=== PATIENT | male | born 1990 | race Native Hawaiian/Other Pacific Islander ===

== ENCOUNTER 2018-06-29 19:26 | Inpatient (IN) | payer BC, MEDICAID ==
[2018-06-29 19:26] VITALS: BMI 21.6
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
[2018-06-30 00:07] LABS: EOS # 0.2 K/uL (0.0-0.7); EOS % 2.2 % (0.0-4.0); HEMOGLOBIN 14.2 g/dL (12.0-18.0); LYMPH # 2.1 K/uL (1.0-4.3); LYMPH % 24.7 % (20.0-40.0); MEAN CELL VOLUME 93.3 fl (80.0-94.0); MEAN CORPUSCULAR HEMOGLOBIN 31.5 pg (27.0-31.0); MEAN CORPUSCULAR HGB CONC 33.8 g/dL (33.0-37.0); MEAN PLATELET VOLUME 10.8 fl (7.2-11.7); MONO # 1.1 K/uL (0.0-0.8); MONO % 12.9 % (0.0-10.0); NEUT # 5.1 K/uL (1.8-7.0); NEUT % 60.2 % (50.0-75.0); NRBC % 0.1 % (0.0-0.0); RBC 4.52 Mil/uL (4.40-5.90); RED CELL DISTRIBUTION WIDTH 12.1 % (11.5-14.5); WHITE BLOOD COUNT 8.5 K/uL (4.8-10.8)
[2018-06-30 00:22] LABS: ALB/GLOB RATIO 1.6 (1.0-2.1); ALBUMIN 4.4 g/dL (3.5-5.0); ALT/SGPT 29 U/L (21-72); AST/SGOT 33 U/L (17-59); BLOOD UREA NITROGEN 8 mg/dl (9-20); CALCIUM 9.5 mg/dL (8.4-10.2); GFR NON-AFRICAN AMERICAN > 60
[2018-06-30 00:47] LABS: BARBITURATES, UR NEGATIVE (NEGATIVE); BENZODIAZEPINES, UR NEGATIVE (NEGATIVE); OPIATES, UR NEGATIVE (NEGATIVE); PHENCYCLIDINE, UR NEGATIVE (NEGATIVE)
[2018-06-30 00:52] LABS: SQUAMOUS EPITHIAL < 1 /hpf (0-5); URINE BILIRUBIN NEGATIVE (NEGATIVE); URINE BLOOD NEGATIVE (NEGATIVE); URINE CLARITY SLIGHTY-CLOUDY (Clear); URINE COLOR YELLOW (YELLOW); URINE GLUCOSE (UA) NEG (NEGATIVE); URINE HYALINE CAST 0-2 /hpf (0-2); URINE LEUKOCYTE ESTERASE NEG Leu/uL (Negative); URINE PROTEIN 30 mg/dL (NEGATIVE); URINE UROBILINOGEN 0.2-1.0 mg/dL (0.2-1.0)
[2018-06-30] MEDS ORDERED: DiphenhydrAMINE 50 mg/ml Inj IM PRN (02:14)
[2018-06-30] MEDS ORDERED: Magnesium Hydroxide Susp 30 ml UD PO PRN (02:14)
[2018-06-30] MEDS ORDERED: Alum-Mag Hydrox-Simethicone Susp (30 mL) PO PRN (02:14)
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
[2018-06-30] MEDS ORDERED: Potassium Chloride 20 mEq ER Tab PO ONE (05:26)
--- NOTE | 2018-06-30 10:24 | CP.PCM.CON ---
History of Present Illness - History of Present Illness History of Present Illness: 27 yo male with history of schizophrenia admitted to psyche unit because of paranoia Review of Systems - Review of Systems All systems: reviewed and no additional remarkable complaints except (aside from those mentioned above, 12 point system review were negative by me) Past Patient History - Tetanus Immunizations Tetanus Immunization: Unknown - Past Social History Smoking Status: Never Smoked Chewing Tobacco Use: No Cigar Use: No Alcohol: None Drugs: Denies - CARDIAC Hx Hypertension: No - PULMONARY Hx Tuberculosis: No - NEUROLOGICAL Hx Seizures: No - HEENT Hx HEENT Problems: No - ENDOCRINE/METABOLIC Hx Endocrine Disorders: No - HEMATOLOGICAL/ONCOLOGICAL Hx Human Immunodeficiency Virus (HIV): No - INTEGUMENTARY Hx Dermatological Problems: No - MUSCULOSKELETAL/RHEUMATOLOGICAL Hx Falls: No - GASTROINTESTINAL Hx Gastrointestinal Disorders: No - GENITOURINARY/GYNECOLOGICAL Hx Sexually Transmitted Disorders: No - PSYCHIATRIC Hx Bipolar Disorder: Yes Hx Paranoia: Yes (COMPULSIVE) Hx Schizophrenia: Yes - SURGICAL HISTORY Hx Surgeries: No - ANESTHESIA Hx Anesthesia: No Hx Anesthesia Reactions: No Hx Malignant Hyperthermia: No Has any member of the family had a problem w/ anesthesia?: No Meds Allergies/Adverse Reactions: Allergies Allergy/AdvReac Type Severity Reaction Status Date / Time No Known Allergies Allergy Verified 06/29/18 22:36 - Medications Medications: Current Medications Acetaminophen (Tylenol 325mg Tab) 650 mg PO Q4 PRN PRN Reason: pain level 4-7 Last Admin: 06/30/18 02:35 Dose: 650 mg Al Hydrox/Mg Hydrox/Simethicone (Maalox Plus 30 Ml) 30 ml PO Q4 PRN PRN Reason: Dyspepsia Diphenhydramine HCl (Benadryl) 50 mg IM Q6 PRN PRN Reason: Extrapyramidal S/S Unable PO Diphenhydramine HCl (Benadryl) 50 mg PO Q6 PRN PRN Reason: Extrapyramidal Symptoms Diphenhydramine HCl (Benadryl) 50 mg PO HS PRN PRN Reason: Sleep Last Admin: 06/30/18 02:35 Dose: 50 mg Haloperidol (Haldol) 5 mg PO Q4 PRN PRN Reason: Agitation Haloperidol Lactate (Haldol) 5 mg IM Q4 PRN PRN Reason: Agitation, Unable to Take PO Lorazepam (Ativan) 2 mg IM Q8H PRN PRN Reason: Anxiety/Agitation,Unable PO Lorazepam (Ativan) 1 mg PO Q8H PRN PRN Reason: Anxiety/Agitation Magnesium Hydroxide (Milk Of Magnesia) 30 ml PO HS PRN PRN Reason: Constipation Physical Exam - Constitutional Appears: No Acute Distress - Head Exam Head Exam: ATRAUMATIC - Eye Exam Eye Exam: absent: Scleral icterus - ENT Exam ENT Exam: Mucous Membranes Moist - Neck Exam Neck exam: Negative for: Meningismus - Respiratory Exam Respiratory Exam: absent: Rales, Rhonchi, Wheezes, Respiratory Distress - Cardiovascular Exam Cardiovascular Exam: REGULAR RHYTHM, +S1, +S2 - GI/Abdominal Exam GI & Abdominal Exam: Soft. absent: Tenderness - Rectal Exam Rectal Exam: Deferred - Neurological Exam Neurological exam: Alert, Oriented x3 - Psychiatric Exam Psychiatric exam: Normal Affect - Skin Skin Exam: Dry, Intact Results - Vital Signs Recent Vital Signs: Last Vital Signs Temp 98.6 F 06/30/18 02:30 Pulse 85 06/30/18 02:51 Resp 18 06/30/18 02:31 BP 110/70 06/30/18 02:30 Pulse Ox 99 06/30/18 02:51 - Labs Result Diagrams: 06/29/18 23:36 06/29/18 23:36 Labs: Laboratory Results - last 24 hr 06/29/18 06/29/18 06/29/18 23:36 23:36 23:36 WBC 8.5 RBC 4.52 Hgb 14.2 Hct 42.1 MCV 93.3 D MCH 31.5 H MCHC 33.8 RDW 12.1 Plt Count 211 MPV 10.8 Neut % (Auto) 60.2 Lymph % (Auto) 24.7 [place] % (Auto) 12.9 H Eos % (Auto) 2.2 Baso % (Auto) 0.0 Neut # (Auto) 5.1 Lymph # (Auto) 2.1 [place] # (Auto) 1.1 H Eos # (Auto) 0.2 Baso # (Auto) 0.0 Sodium 137 Potassium 3.5 L Chloride 100 Carbon Dioxide 25 Anion Gap 16 BUN 8 L Creatinine 0.8 Est GFR ( Amer) > 60 Est GFR (Non-Af Amer) > 60 Random Glucose 107 Calcium 9.5 Total Bilirubin 0.6 AST 33 ALT 29 Alkaline Phosphatase 48 Total Protein 7.2 Albumin 4.4 Globulin 2.8 Albumin/Globulin Ratio 1.6 Urine Color Urine Clarity Urine pH Ur Specific Conrad Urine Protein Urine Glucose (UA) Urine Ketones Urine Blood Urine Nitrate Urine Bilirubin Urine Urobilinogen Ur Leukocyte Esterase Urine RBC (Auto) Urine Microscopic WBC Ur Squamous Epith Cells Hyaline Casts Salicylates < 1.0 Urine Opiates Screen Urine Methadone Screen Ur Barbiturates Screen Ur Phencyclidine Scrn Ur Amphetamines Screen U Benzodiazepines Scrn U Oth Cocaine Metabols U Cannabinoids Screen Alcohol, Quantitative < 10 06/30/18 06/30/18 00:20 00:20 WBC RBC Hgb Hct MCV MCH MCHC RDW Plt Count MPV Neut % (Auto) Lymph % (Auto) [place] % (Auto) Eos % (Auto) Baso % (Auto) Neut # (Auto) Lymph # (Auto) [place] # (Auto) Eos # (Auto) Baso # (Auto) Sodium Potassium Chloride Carbon Dioxide Anion Gap BUN Creatinine Est GFR ( Amer) Est GFR (Non-Af Amer) Random Glucose Calcium Total Bilirubin AST ALT Alkaline Phosphatase Total Protein Albumin Globulin Albumin/Globulin Ratio Urine Color Yellow Urine Clarity Slighty-cloudy Urine pH 6.0 Ur Specific Conrad 1.014 Urine Protein 30 Urine Glucose (UA) Neg Urine Ketones Negative Urine Blood Negative Urine Nitrate Negative Urine Bilirubin Negative Urine Urobilinogen 0.2-1.0 Ur Leukocyte Esterase Neg Urine RBC (Auto) 3 Urine Microscopic WBC 4 Ur Squamous Epith Cells < 1 Hyaline Casts 0-2 Salicylates Urine Opiates Screen Negative Urine Methadone Screen Negative Ur Barbiturates Screen Negative Ur Phencyclidine Scrn Negative Ur Amphetamines Screen Negative U Benzodiazepines Scrn Negative U Oth Cocaine Metabols Positive H U Cannabinoids Screen Positive H Alcohol, Quantitative Assessment & Plan (1) Schizophrenia, paranoid Status: Acute Comment: psyche is managing
--- NOTE | 2018-06-30 14:11 | RAD ---
Date of service: 06/29/2018 HISTORY: MEDICAL CLEARANCE COMPARISON: Comparison chest 03/05/2015 TECHNIQUE: Chest PA and lateral views FINDINGS: LUNGS: No active pulmonary disease. PLEURA: No significant pleural effusion identified. No pneumothorax apparent. CARDIOVASCULAR: No aortic atherosclerotic calcification present. Normal cardiac size. No pulmonary vascular congestion. OSSEOUS STRUCTURES: No significant abnormalities. VISUALIZED UPPER ABDOMEN: Normal. OTHER FINDINGS: None. IMPRESSION: No active disease.
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
--- NOTE | 2018-06-30 17:30 | CARD ---
APPROVED REPORT Date of service: 06/30/2018 EKG Measurement Heart [id number] <Conclusion> Normal sinus rhythm with sinus arrhythmia Early repolarization Normal ECG
--- NOTE | 2018-07-01 13:45 | PCM.PYCHPN ---
Psychiatric Progress Note - Psychiatric Progress Note Patient seen today, length of contact: chart reviewed case discussed with team pt seen Patient Chief Complaint: minimal verbalization when this manual writer attempted to engage pt.. staff report pt somewhat isolative at time, per staff pt reports sleep improved somewhat denies side effects medication, pt seen walking about unit, make eye contact intermittently, staff report pt's behavior bizzarre at times, continues to report that father has not been helping him staff report pt received prn medications last night 2nd anxiety/irritability Problems Identified/Issues Discussed: alteration in mood alteration in cognition alteration in coping Medical Problems: per chart Diagnostic Results: psychiatry per medicine per nursing per social media analyst DSM 5 Symptoms Update: paranoia Medication Change: Yes (increase seroquel to 100mg ) Medical Record Reviewed: Yes Consults ordered or reviewed: pt being followed by medical team Mental Status Examination - Cognitive Function Orientation: Person, Place Attention: Poor Concentration: Poor Association: Loose Fund of Knowledge: Poor Decription of patient's judgement and insights: impaired - Affect Affect: Constricted - Speech Speech: Soft - Formal Thought Process Formal Thought Process: Paranoia (congrete) - Homicidal Ideation Homicidal Ideation: No Goal/Treatment Plan - Goal/Treatment Plan Need for Continued Stay: Remain at risks for inpatient hospitalization, Discharge may exacerbated symptoms Progress Toward Problem(s) and Goals/Treatment Plan: inpt milieu vital signs and clinical assessment per clinical status and per protocol prns per unit protocol hospitalist consult increase seroquel 100mg po hs repeat cmp in am (previous potassium 3.5/received replacement x1 dose [id number] per medical team recheck urinalysis in am pt with +rbc/wbc/cloudy-will obtain rpr, gchlamydia am, obtain hiv 1/2 screen (rule sti) pt defers having knowledge at to why urine toxicology was positive for thc and cocaine discharge planning in progress Estimated Date of D/C: 07/09/18 - Smoking Cessation Smoking Cessation Initiated: No Reason for not providing: pt defers
[2018-07-01 20:38] VITALS: O2SAT 100
[2018-07-02] MEDS ORDERED: OLANZapine 5 mg Disintegrating Tab PO STA (11:43)
--- NOTE | 2018-07-02 14:19 | PCM.PYCHPN ---
Psychiatric Progress Note - Psychiatric Progress Note Patient seen today, length of contact: chart reviewed case discussed with team pt seen Patient Chief Complaint: It is all my father fault Problems Identified/Issues Discussed: pt evaluated with treatment team, presenting with disorganized speech and thought process, verbalizing paranoid delusions towards father, showing limited insight into illness and into the need for medications, pt reportedly developed EPS yesterday due to haldol, discussed starting low dose of zyprexa with cogentin and also starting depakote ,pt appears internally preoccupied, denid command hallucinations, denied suicidal or homicidal ideation DSM 5 Symptoms Update: schizoaffective disorder cannabis abuse cocaine abuse Medication Change: Yes (start zyprexa and depakote) Medical Record Reviewed: Yes Mental Status Examination - Cognitive Function Orientation: Person, Place Attention: Poor Concentration: Poor Association: Loose Fund of Knowledge: Poor - Affect Affect: Constricted - Speech Speech: Soft - Formal Thought Process Formal Thought Process: Paranoia (congrete) - Suicidal Ideation Suicidal Ideation: No - Homicidal Ideation Homicidal Ideation: No Goal/Treatment Plan - Goal/Treatment Plan Need for Continued Stay: Remain at risks for inpatient hospitalization, Discharge may exacerbated symptoms Progress Toward Problem(s) and Goals/Treatment Plan: start zyprexa zydis 5mg with cogentin 1mg depakote 1500mg monitor pt for psychopharmacological effects and side effects profile try to obtain collateral information/ message left for father Estimated Date of D/C: 07/09/18
[2018-07-02] MEDS: Divalproex 500 mg DR(BID formulation) PO SCH (21:06)
[2018-07-03] MEDS: Divalproex 500 mg DR(BID formulation) PO SCH ×2 (08:40→21:05)
--- NOTE | 2018-07-03 14:23 | PCM.PYCHPN ---
Psychiatric Progress Note - Psychiatric Progress Note Patient seen today, length of contact: chart reviewed case discussed with team pt seen Patient Chief Complaint: I do not want to talk to my father Problems Identified/Issues Discussed: pt evaluated continues to be guarded and evasive paranoid with delusions of persecution towards his fathe internally preoccupied, observed responding to internal stimuli, poor insight into illness , irritable mood and affect di scussed increasing zyprexa, no reported side effects pt denied command hallucinations denied suicidal or homicidal ideation DSM 5 Symptoms Update: schizoaffective disorder bipolar type Medication Change: Yes (increase zyprexa) Medical Record Reviewed: Yes Mental Status Examination - Cognitive Function Orientation: Person, Place Attention: Poor Concentration: Poor Association: Loose Fund of Knowledge: Poor - Affect Affect: Constricted - Speech Speech: Soft - Formal Thought Process Formal Thought Process: Paranoia (congrete) - Suicidal Ideation Suicidal Ideation: No - Homicidal Ideation Homicidal Ideation: No Goal/Treatment Plan - Goal/Treatment Plan Need for Continued Stay: Remain at risks for inpatient hospitalization, Discharge may exacerbated symptoms Progress Toward Problem(s) and Goals/Treatment Plan: increase zyprexa zydis 10mg with cogentin 2mg depakote 1500mg / follow up on depakote level monitor pt for psychopharmacological effects and side effects profile try to obtain collateral information/ message left for father Estimated Date of D/C: 07/09/18
[2018-07-03] MEDS: OLANZapine 10 mg Disintegrating Tab PO SCH (21:05)
[2018-07-03] MEDS ORDERED: OLANZapine 5 mg Disintegrating Tab PO SCH (22:00)
[2018-07-03] MEDS ORDERED: OLANZapine 10 mg Disintegrating Tab PO SCH (22:00)
[2018-07-04] MEDS: Divalproex 500 mg DR(BID formulation) PO SCH ×2 (09:59→21:10)
--- NOTE | 2018-07-04 14:32 | PCM.PYCHPN ---
Psychiatric Progress Note - Psychiatric Progress Note Patient seen today, length of contact: chart reviewed case discussed with team pt seen Patient Chief Complaint: I refuse to take injections Problems Identified/Issues Discussed: pt evaluated observed internally preoccupied, responding to internal stimuli, continues to be guarded and evasive paranoid with delusions of persecution towards his father , no insight into mental illness , refusing injections to maintain compliance and requesting to be discharged, psychoeduction provided discussing with pt the need to continue with treatment and importance of compliance pt denied command hallucinations denied suicidal or homicidal ideation DSM 5 Symptoms Update: schizoaffective disorder bipolar type Medication Change: No Medical Record Reviewed: Yes Mental Status Examination - Cognitive Function Orientation: Person, Place Attention: Poor Concentration: Poor Association: Loose Fund of Knowledge: Poor - Affect Affect: Constricted - Speech Speech: Soft - Formal Thought Process Formal Thought Process: Paranoia (congrete) - Suicidal Ideation Suicidal Ideation: No - Homicidal Ideation Homicidal Ideation: No Goal/Treatment Plan - Goal/Treatment Plan Need for Continued Stay: Remain at risks for inpatient hospitalization, Discharge may exacerbated symptoms Progress Toward Problem(s) and Goals/Treatment Plan: zyprexa zydis 10mg with cogentin 2mg/ increase gradually depakote 1500mg / follow up on depakote level monitor pt for psychopharmacological effects and side effects profile Estimated Date of D/C: 07/09/18
[2018-07-04] MEDS: OLANZapine 10 mg Disintegrating Tab PO SCH (21:11)
[2018-07-05] MEDS: Divalproex 500 mg DR(BID formulation) PO SCH ×2 (09:28→21:06)
--- NOTE | 2018-07-05 13:29 | PCM.PYCHPN ---
Psychiatric Progress Note - Psychiatric Progress Note Patient seen today, length of contact: chart reviewed case discussed with team pt seen Patient Chief Complaint: I am tired today Problems Identified/Issues Discussed: pt evaluated , seen in bed , continues to be guarded evasive internally preoccupied , mood reported tired with constricted affect , limited insight into illness refusing to be started on depot medication to ensure compliance , no reported changes in sleep or appetite pt denied command hallucinations denied suicidal or homicidal ideation DSM 5 Symptoms Update: schizoaffective disorder bipolar type Medication Change: No Medical Record Reviewed: Yes Mental Status Examination - Cognitive Function Orientation: Person, Place Attention: WNL Concentration: Poor Association: WNL Fund of Knowledge: Poor Decription of patient's judgement and insights: poor insight and judgment - Mood Mood: Anxious - Affect Affect: Constricted - Speech Speech: Appropriate, Soft - Formal Thought Process Formal Thought Process: Delusions, Paranoia (congrete) - Suicidal Ideation Suicidal Ideation: No - Homicidal Ideation Homicidal Ideation: No Goal/Treatment Plan - Goal/Treatment Plan Need for Continued Stay: Remain at risks for inpatient hospitalization, Discharge may exacerbated symptoms Progress Toward Problem(s) and Goals/Treatment Plan: increase zyprexa zydis 15mg with cogentin 2mg/ increase gradually depakote 1500mg / follow up on depakote level monitor pt for psychopharmacological effects and side effects profile Estimated Date of D/C: 07/09/18
[2018-07-05] MEDS: OLANZapine 5 mg Disintegrating Tab PO SCH (21:06)
[2018-07-06] MEDS: Divalproex 500 mg DR(BID formulation) PO SCH ×2 (09:00→21:34)
--- NOTE | 2018-07-06 12:30 | PCM.PYCHPN ---
Psychiatric Progress Note - Psychiatric Progress Note Patient seen today, length of contact: chart reviewed case discussed with team pt seen Patient Chief Complaint: I do not need blood work Problems Identified/Issues Discussed: pt evaluated , refusing blood work, angry and irritable, showing no insight into illness continues to verbalize paranoid delusions towards his father , pt has no insight into his need for medications, refusing depot injections, continues to be internally preoccupied responding to internal stimuli pt denied command hallucinations denied suicidal or homicidal ideation DSM 5 Symptoms Update: schizoaffective disorder bipolar Medication Change: No Medical Record Reviewed: Yes Mental Status Examination - Cognitive Function Orientation: Person, Place Attention: WNL Concentration: Poor Association: WNL Fund of Knowledge: Poor Decription of patient's judgement and insights: poor insight and judgment - Mood Mood: Anxious - Affect Affect: Constricted - Speech Speech: Appropriate, Soft - Formal Thought Process Formal Thought Process: Delusions, Paranoia (congrete) - Suicidal Ideation Suicidal Ideation: No - Homicidal Ideation Homicidal Ideation: No Goal/Treatment Plan - Goal/Treatment Plan Need for Continued Stay: Remain at risks for inpatient hospitalization, Discharge may exacerbated symptoms Progress Toward Problem(s) and Goals/Treatment Plan: zyprexa zydis 15mg with cogentin 2mg/ increase gradually depakote 1500mg / follow up on depakote level monitor pt for psychopharmacological effects and side effects profile psychoeducation for medication compliance arrange for family meeting Estimated Date of D/C: 07/09/18
[2018-07-06] MEDS: OLANZapine 5 mg Disintegrating Tab PO SCH (21:35)
--- NOTE | 2018-07-07 09:04 | PCM.PYCHPN ---
Psychiatric Progress Note - Psychiatric Progress Note Patient seen today, length of contact: chart reviewed case discussed with team pt seen Patient Chief Complaint: pt has remained very internally preoccupied with paranoid delusions towards the father.pt has been compliant with meds but remains with poor insight and need further stabilization. Medication Change: No Medical Record Reviewed: Yes Mental Status Examination - Cognitive Function Orientation: Person, Place Attention: WNL Concentration: Poor Association: WNL Fund of Knowledge: Poor - Mood Mood: Anxious - Affect Affect: Constricted - Speech Speech: Appropriate, Soft - Formal Thought Process Formal Thought Process: Delusions, Paranoia (congrete) - Suicidal Ideation Suicidal Ideation: No - Homicidal Ideation Homicidal Ideation: No Goal/Treatment Plan - Goal/Treatment Plan Need for Continued Stay: Remain at risks for inpatient hospitalization, Discharge may exacerbated symptoms Progress Toward Problem(s) and Goals/Treatment Plan: will continue to stabilize pt with current meds and engage in therapy Disposition as per dr packer. Estimated Date of D/C: 07/09/18
[2018-07-07] MEDS: Divalproex 500 mg DR(BID formulation) PO SCH ×2 (09:47→21:17)
[2018-07-07] MEDS: OLANZapine 5 mg Disintegrating Tab PO SCH (21:17)
[2018-07-08] MEDS: Divalproex 500 mg DR(BID formulation) PO SCH ×2 (09:03→21:12)
--- NOTE | 2018-07-08 14:29 | PCM.PYCHPN ---
Psychiatric Progress Note - Psychiatric Progress Note Patient seen today, length of contact: chart reviewed case discussed with team pt seen Patient Chief Complaint: pt has remained very anxious and restless and still very internally preoccupied with paranoid delusions towards the father.pt has been compliant with meds but remains with poor insight and need further stabilization. Medication Change: No Medical Record Reviewed: Yes Mental Status Examination - Cognitive Function Orientation: Person, Place Attention: WNL Concentration: Poor Association: WNL Fund of Knowledge: Poor - Mood Mood: Anxious - Affect Affect: Constricted - Speech Speech: Appropriate, Soft - Formal Thought Process Formal Thought Process: Delusions, Paranoia (congrete) - Suicidal Ideation Suicidal Ideation: No - Homicidal Ideation Homicidal Ideation: No Goal/Treatment Plan - Goal/Treatment Plan Need for Continued Stay: Remain at risks for inpatient hospitalization, Discharge may exacerbated symptoms Progress Toward Problem(s) and Goals/Treatment Plan: will continue to stabilize pt with current meds and engage in therapy Disposition as per dr packer. Estimated Date of D/C: 07/09/18
[2018-07-08] MEDS: OLANZapine 5 mg Disintegrating Tab PO SCH (21:11)
[2018-07-09] MEDS: Divalproex 500 mg DR(BID formulation) PO SCH ×2 (10:00→21:55)
--- NOTE | 2018-07-09 11:14 | PCM.PYCHPN ---
Psychiatric Progress Note - Psychiatric Progress Note Patient seen today, length of contact: chart reviewed case discussed with team pt seen Patient Chief Complaint: I will not take injections Problems Identified/Issues Discussed: pt evaluated , with treatment team, continues to be anxious and irritable, showing no insight into illness , refusing blood work and refusing depot medications, discussed with pt increasing zyprexa, no reported side effects, also discussed arranging for family meeting with father pt denied command hallucinations denied suicidal or homicidal ideation DSM 5 Symptoms Update: schizoaffective disorder bipolar Medication Change: Yes (increase zyprexa) Medical Record Reviewed: Yes Mental Status Examination - Cognitive Function Orientation: Person, Place Attention: WNL Concentration: Poor Association: WNL Fund of Knowledge: Poor - Mood Mood: Anxious - Affect Affect: Constricted - Speech Speech: Appropriate, Soft - Formal Thought Process Formal Thought Process: Delusions, Paranoia (congrete) - Suicidal Ideation Suicidal Ideation: No - Homicidal Ideation Homicidal Ideation: No Goal/Treatment Plan - Goal/Treatment Plan Need for Continued Stay: Remain at risks for inpatient hospitalization, Discharge may exacerbated symptoms Progress Toward Problem(s) and Goals/Treatment Plan: increase zyprexa zydis 20mg with cogentin 2mg/ increase gradually depakote 1500mg / follow up on depakote level monitor pt for psychopharmacological effects and side effects profile psychoeducation for medication compliance arrange for family meeting Estimated Date of D/C: 07/09/18
[2018-07-09] MEDS: OLANZapine 10 mg Disintegrating Tab PO SCH (21:55)
--- NOTE | 2018-07-10 10:24 | PCM.PYCHPN ---
Psychiatric Progress Note - Psychiatric Progress Note Patient seen today, length of contact: chart reviewed case discussed with team pt seen Patient Chief Complaint: I want my father to understand it is his problem not mine Problems Identified/Issues Discussed: pt evaluated , continues to be anxious and irritable, showing no insight into illness , refusing blood work and refusing depot medications, no reported side effects with increasing zyprexa , continues to have paranoid delusions towards his father , blaming him for being in the hospital ,o discussed arranging for family meeting with father pt denied command hallucinations denied suicidal or homicidal ideation DSM 5 Symptoms Update: schizoaffective disorder bipolar Medication Change: No Medical Record Reviewed: Yes Mental Status Examination - Cognitive Function Orientation: Person, Place Attention: WNL Concentration: Poor Association: WNL Fund of Knowledge: Poor - Mood Mood: Anxious - Affect Affect: Constricted - Speech Speech: Appropriate, Soft - Formal Thought Process Formal Thought Process: Delusions, Paranoia (congrete) - Suicidal Ideation Suicidal Ideation: No - Homicidal Ideation Homicidal Ideation: No Goal/Treatment Plan - Goal/Treatment Plan Need for Continued Stay: Remain at risks for inpatient hospitalization, Discharge may exacerbated symptoms Progress Toward Problem(s) and Goals/Treatment Plan: zyprexa zydis 20mg with cogentin 2mg/ depakote 1500mg /pt refusing blood work to follow up on depakote level monitor pt for psychopharmacological effects and side effects profile psychoeducation for medication compliance arrange for family meeting Estimated Date of D/C: 07/09/18
[2018-07-10] MEDS: Divalproex 500 mg DR(BID formulation) PO SCH ×2 (11:56→21:18)
[2018-07-10] MEDS: OLANZapine 10 mg Disintegrating Tab PO SCH (21:18)
--- NOTE | 2018-07-11 09:55 | PCM.PYCHPN ---
Psychiatric Progress Note - Psychiatric Progress Note Patient seen today, length of contact: chart reviewed case discussed with team pt seen Patient Chief Complaint: I refuse any injections Problems Identified/Issues Discussed: pt evaluated , continues to be non cooperative with treatment selective with medications , refusing blood work and refusing depot medications, presenting with anxious mood and irritable affect, continues to have paranoid delusions towards his father , blaming him for being in the hospital ,pt has poor insight into illness , DSM 5 Symptoms Update: schizoaffective disorder bipolar Medication Change: No Medical Record Reviewed: Yes Mental Status Examination - Cognitive Function Orientation: Person, Place Attention: WNL Concentration: Poor Association: WNL Fund of Knowledge: Poor - Mood Mood: Anxious - Affect Affect: Constricted - Speech Speech: Appropriate, Soft - Formal Thought Process Formal Thought Process: Delusions, Paranoia (congrete) - Suicidal Ideation Suicidal Ideation: No - Homicidal Ideation Homicidal Ideation: No Goal/Treatment Plan - Goal/Treatment Plan Need for Continued Stay: Remain at risks for inpatient hospitalization, Discharge may exacerbated symptoms Progress Toward Problem(s) and Goals/Treatment Plan: pt has no insight into illness continues to show limited improvement as he is uncooperative with treatment plan, pt would be a high risk for decompensation on discharge , pt will be referred for screening for possible longer term hospitalization for furher stabilization zyprexa zydis 20mg with cogentin 2mg depakote 1500mg /pt refusing blood work to follow up on depakote level monitor pt for psychopharmacological effects and side effects profile psychoeducation for medication compliance Estimated Date of D/C: 07/13/18
[2018-07-11] MEDS: Divalproex 500 mg DR(BID formulation) PO SCH ×2 (09:58→21:08)
[2018-07-11 19:48] LABS: HEMOGLOBIN 14.2 g/dL (12.0-18.0); MEAN CELL VOLUME 94.6 fl (80.0-94.0); MEAN CORPUSCULAR HEMOGLOBIN 31.2 pg (27.0-31.0); RBC 4.55 Mil/uL (4.40-5.90); RED CELL DISTRIBUTION WIDTH 12.1 % (11.5-14.5); WHITE BLOOD COUNT 6.8 K/uL (4.8-10.8)
[2018-07-11 20:17] LABS: ALB/GLOB RATIO 1.5 (1.0-2.1); ALBUMIN 4.1 g/dL (3.5-5.0); ALT/SGPT 43 U/L (21-72); AST/SGOT 35 U/L (17-59); BLOOD UREA NITROGEN 11 mg/dl (9-20); CALCIUM 9.3 mg/dL (8.4-10.2); GFR NON-AFRICAN AMERICAN > 60
[2018-07-11] MEDS: OLANZapine 10 mg Disintegrating Tab PO SCH (21:09)
[2018-07-12] MEDS: Divalproex 500 mg DR(BID formulation) PO SCH ×2 (09:23→21:12)
--- NOTE | 2018-07-12 15:46 | PCM.PYCHPN ---
Psychiatric Progress Note - Psychiatric Progress Note Patient seen today, length of contact: chart reviewed case discussed with team pt seen Patient Chief Complaint: It is my father's mistake Problems Identified/Issues Discussed: pt evaluated , seen attending groups illness , no reported changes in sleep or appetite, continues to have limited insight into illness with paranoid delusions towards his father , denied suicidal or homicidal ideation denied current perceptual disturbances Medication Change: No Medical Record Reviewed: Yes Mental Status Examination - Cognitive Function Orientation: Person, Place Attention: WNL Concentration: Poor Association: WNL Fund of Knowledge: Poor - Mood Mood: Anxious - Affect Affect: Constricted - Speech Speech: Appropriate, Soft - Formal Thought Process Formal Thought Process: Delusions, Paranoia (congrete) - Suicidal Ideation Suicidal Ideation: No - Homicidal Ideation Homicidal Ideation: No Goal/Treatment Plan - Goal/Treatment Plan Need for Continued Stay: Remain at risks for inpatient hospitalization, Discharge may exacerbated symptoms Progress Toward Problem(s) and Goals/Treatment Plan: n zyprexa zydis 20mg with cogentin 2mg depakote 1500mg / monitor pt for psychopharmacological effects and side effects profile psychoeducation for medication compliance Estimated Date of D/C: 07/13/18
[2018-07-12] MEDS: OLANZapine 10 mg Disintegrating Tab PO SCH (21:12)
[2018-07-13] MEDS: Divalproex 500 mg DR(BID formulation) PO SCH ×2 (09:02→21:08)
--- NOTE | 2018-07-13 14:00 | PCM.PYCHPN ---
Psychiatric Progress Note - Psychiatric Progress Note Patient seen today, length of contact: chart reviewed case discussed with team pt seen Patient Chief Complaint: I am alright Problems Identified/Issues Discussed: pt evaluated ,reported mood is fine, constricted affect seen attending groups , no reported changes in sleep or appetite, continues to have limited insight into illness with paranoid delusions towards his father , denied suicidal or homicidal ideation denied current perceptual disturbances DSM 5 Symptoms Update: schizoaffective disorder bipolar Medication Change: No Medical Record Reviewed: Yes Mental Status Examination - Cognitive Function Orientation: Person, Place Attention: WNL Concentration: Poor Association: WNL Fund of Knowledge: Poor - Mood Mood: Anxious - Affect Affect: Constricted - Speech Speech: Appropriate, Soft - Formal Thought Process Formal Thought Process: Delusions, Paranoia (congrete) - Suicidal Ideation Suicidal Ideation: No - Homicidal Ideation Homicidal Ideation: No Goal/Treatment Plan - Goal/Treatment Plan Need for Continued Stay: Remain at risks for inpatient hospitalization, Discharge may exacerbated symptoms Progress Toward Problem(s) and Goals/Treatment Plan: n zyprexa zydis 20mg with cogentin 2mg depakote 1500mg / monitor pt for psychopharmacological effects and side effects profile psychoeducation for medication compliance Estimated Date of D/C: 07/13/18
[2018-07-13] MEDS: OLANZapine 10 mg Disintegrating Tab PO SCH (21:09)
[2018-07-14] MEDS: Divalproex 500 mg DR(BID formulation) PO SCH ×2 (10:36→21:21)
--- NOTE | 2018-07-14 11:06 | PCM.PYCHPN ---
Psychiatric Progress Note - Psychiatric Progress Note Patient seen today, length of contact: Pt evaluated, chart reviewed, case discussed w/ team Patient Chief Complaint: "I'm okay" Problems Identified/Issues Discussed: Patient continues to be paranoid towards his father w/ poor insight into his mental illness. He is currently calm and cooperative. He is isolative at times, but engages appropriately w/ medical technical writer. He reports his mood as stable, but he has constricted affect. Medication Change: No Medical Record Reviewed: Yes Consults ordered or reviewed: Medicine consult Mental Status Examination - Cognitive Function Orientation: Person, Place, Situation, Time Memory: Intact Decription of patient's judgement and insights: Poor I/J - Mood Mood: Neutral - Affect Affect: Constricted - Speech Speech: Appropriate - Formal Thought Process Formal Thought Process: Delusions, Paranoia Psychotic Thoughts and Behaviors: +Paranoia - Suicidal Ideation Suicidal Ideation: No - Homicidal Ideation Homicidal Ideation: No Goal/Treatment Plan - Goal/Treatment Plan Need for Continued Stay: Remain at risks for inpatient hospitalization, Discharge may exacerbated symptoms Progress Toward Problem(s) and Goals/Treatment Plan: Schizoaffective Disorder -Continue Depakote, Zyprexa and Cogentin -Individual and group therapy -Medicine consult -Psychoeducation -Disposition planning
[2018-07-14] MEDS: OLANZapine 10 mg Disintegrating Tab PO SCH (21:21)
--- NOTE | 2018-07-15 09:44 | PCM.PYCHPN ---
Psychiatric Progress Note - Psychiatric Progress Note Patient seen today, length of contact: Pt evaluated, chart reviewed, case discussed w/ team Patient Chief Complaint: "I'm okay" Problems Identified/Issues Discussed: Patient reports his mood as "fine", but he has constricted affect. Patient continues to be paranoid towards his father w/ poor insight into his mental illness. He is isolative at times, but engages appropriately w/ keno writer. Medication Change: No Medical Record Reviewed: Yes Consults ordered or reviewed: Medicine consult Mental Status Examination - Cognitive Function Orientation: Person, Place, Situation, Time Memory: Intact Decription of patient's judgement and insights: Poor I/J - Mood Mood: Neutral - Affect Affect: Constricted - Speech Speech: Appropriate - Formal Thought Process Formal Thought Process: Delusions, Paranoia Psychotic Thoughts and Behaviors: +Paranoia - Suicidal Ideation Suicidal Ideation: No - Homicidal Ideation Homicidal Ideation: No Goal/Treatment Plan - Goal/Treatment Plan Need for Continued Stay: Remain at risks for inpatient hospitalization, Discharge may exacerbated symptoms Progress Toward Problem(s) and Goals/Treatment Plan: Schizoaffective Disorder -Continue Depakote, Zyprexa and Cogentin -Individual and group therapy -Medicine consult -Psychoeducation -Disposition planning
[2018-07-15] MEDS: Divalproex 500 mg DR(BID formulation) PO SCH ×2 (10:36→21:39)
[2018-07-15] MEDS: OLANZapine 10 mg Disintegrating Tab PO SCH (21:40)
[2018-07-16] MEDS: Divalproex 500 mg DR(BID formulation) PO SCH ×2 (09:34→21:18)
--- NOTE | 2018-07-16 15:59 | PCM.PYCHPN ---
Psychiatric Progress Note - Psychiatric Progress Note Patient seen today, length of contact: Pt evaluated, chart reviewed, case discussed w/ team Patient Chief Complaint: I do not want to be in a [facility] Problems Identified/Issues Discussed: pt evaluated with treatment team, reported mood is fine, constricted affect seen attending groups , no reported changes in sleep or appetite, continues to have limited insight into illness with paranoid delusions towards his father , denied suicidal or homicidal ideation denied current perceptual disturbances DSM 5 Symptoms Update: schizoaffective disorder bipolar type Medication Change: No Medical Record Reviewed: Yes Mental Status Examination - Cognitive Function Orientation: Person, Place, Situation, Time Memory: Intact - Mood Mood: Neutral - Affect Affect: Constricted - Speech Speech: Appropriate - Formal Thought Process Formal Thought Process: Delusions, Paranoia - Suicidal Ideation Suicidal Ideation: No - Homicidal Ideation Homicidal Ideation: No Goal/Treatment Plan - Goal/Treatment Plan Need for Continued Stay: Remain at risks for inpatient hospitalization, Discharge may exacerbated symptoms Progress Toward Problem(s) and Goals/Treatment Plan: n zyprexa zydis 20mg with cogentin 2mg depakote 1500mg / monitor pt for psychopharmacological effects and side effects profile psychoeducation for medication compliance Estimated Date of D/C: 07/13/18
[2018-07-16] MEDS: OLANZapine 10 mg Disintegrating Tab PO SCH (21:19)
[2018-07-17] MEDS: Divalproex 500 mg DR(BID formulation) PO SCH (08:43)
[2018-07-17 09:21] VITALS: BP 139/79; PULSE 87; RESP 18; TEMP 98.5
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
== END 2018-07-17 12:30 | disposition home or self-care (01) | DRG 750 ==
LOC: H.ER 19:26 → H.ERHOLD 06-30 01:09 → H.PSYCH 06-30 02:09
PROVIDERS: ADMIT Psychiatry & Neurology Psychiatry; ATTEND Psychiatry & Neurology Psychiatry
PROC: GZHZZZZ Group Psychotherapy (ICD-10-PCS; principal; 2018-06-30)
PROC: GZ58ZZZ Individual Psychotherapy, Cognitive-Behavioral (ICD-10-PCS; 2018-06-30)
PROC: HZ52ZZZ Individual Psychotherapy for Substance Abuse Treatment, Cognitive-Behavioral (ICD-10-PCS; 2018-06-30)
DX: F25.0 Schizoaffective disorder, bipolar type (principal); F14.10 Cocaine abuse, uncomplicated; F43.20 Adjustment disorder, unspecified; F12.10 Cannabis abuse, uncomplicated; Z91.410 Personal history of adult physical and sexual abuse; Z91.411 Personal history of adult psychological abuse; Z59.0 Homelessness